=== PATIENT | female | born 1950 | race Caucasian/White ===

== ENCOUNTER 2024-01-17 15:32 | Inpatient (IN) | payer MEDICARE, BC ==
[~2024-01-17] VITALS: Ht 177.8 cm; Wt 77.1 kg
[2024-01-17 16:00] VITALS: BP 156/98; TEMP 98.2; O2SAT 99
[2024-01-17] MEDS: BLOOD SUGAR DIAGNOSTIC 1 EACH STRIP IN ONE (16:30)
[2024-01-17] MEDS ORDERED: MAGNESIUM HYDROXIDE 30 ML UDC PO PRN (16:30)
[2024-01-17] MEDS ORDERED: LORAZEPAM 0.5 MG TABLET PO PRN (16:30)
[2024-01-17] MEDS ORDERED: TEMAZEPAM 7.5 MG CAPSULE PO PRN (16:30)
[2024-01-17] MEDS ORDERED: MAG HYDROX/AL HYDROX/SIMETH 30 ML UDC PO PRN (16:30)
[2024-01-17] MEDS ORDERED: METH500T6 PO (19:50)
[2024-01-17] MEDS ORDERED: ASPI-1420 PO (19:50)
[2024-01-17] MEDS ORDERED: CYAN-51 PO (19:50)
[2024-01-17] MEDS ORDERED: LORA2TAB95 PO (19:50)
[2024-01-17] MEDS ORDERED: MYRBETRIQ PO (19:50)
[2024-01-17] MEDS ORDERED: BUPR-54 PO (19:50)
[2024-01-17] MEDS ORDERED: LEVO75TA PO (19:50)
[2024-01-17] MEDS ORDERED: CHOL200059 PO (19:50)
[2024-01-17] MEDS ORDERED: GABA300C PO (19:50)
[2024-01-17] MEDS ORDERED: MULT-754 PO (19:50)
[2024-01-17] MEDS ORDERED: QUET300T2 PO (19:50)
[2024-01-17] MEDS ORDERED: ROSU5TAB PO (19:50)
[2024-01-17] MEDS ORDERED: METO25TA6 PO (19:50)
[2024-01-17] MEDS ORDERED: DEUT9TAB PO (19:50)
[2024-01-17] MEDS ORDERED: MELA10CA PO (19:50)
[2024-01-17 21:19] VITALS: BP 152/100; TEMP 98.1; O2SAT 98
[2024-01-17] MEDS: ACETAMINOPHEN 325 MG TABLET PO PRN (23:23)
[2024-01-18 08:00] VITALS: TEMP 98.6; O2SAT 98
[2024-01-18] MEDS: ASPIRIN EC 81 MG TABLET.DR PO SCH (08:11)
[2024-01-18] MEDS: CHOLECALCIFEROL 1,000 UNIT TABLET (VIT D3) PO SCH (08:11)
[2024-01-18] MEDS: LEVOTHYROXINE SODIUM 75 MCG TABLET PO SCH (08:11)
[2024-01-18] MEDS: CYANOCOBALAMIN 500 MCG TABLET PO SCH (08:11)
[2024-01-18] MEDS: METOPROLOL TARTRATE 25 MG TABLET PO SCH (08:11)
[2024-01-18] MEDS: MULTIVITAMINS,THERAGRAN 1 UDTAB TABLET PO SCH (08:11)
[2024-01-18] MEDS ORDERED: BUPROPION XL 150 MG TAB.ER.24 PO SCH (09:00)
[2024-01-18] MEDS ORDERED: Medication Not On Formulary EA ([Myrbetriq] 50 MG) PO SCH (09:00)
[2024-01-18] MEDS: CLONIDINE HCL 0.1MG/24H PTWK 1 EA PATCH TD SCH (12:05)
[2024-01-18] MEDS: risperiDONE 1 MG TABLET PO SCH (12:35)
[2024-01-18] MEDS: ENSURE ENLIVE 237 ML LIQUID (VANILLA) PO SCH (12:35)
[2024-01-18] MEDS: LORAZEPAM 0.5 MG TABLET PO SCH (12:36)
[2024-01-18] MEDS: OXCARBAZEPINE 150 MG TABLET PO SCH (12:37)
[2024-01-18 16:00] VITALS: BP 134/81; TEMP 98.6; O2SAT 97
[2024-01-18 20:24] LABS: ALBUMIN 3.5 g/dL (3.4-5.0); BILIRUBIN,TOTAL 0.6 mg/dL (0.2-1.0); CALCIUM, SERUM 9.4 mg/dL (8.5-10.1); POTASSIUM 3.5 mmol/L (3.5-5.1)
[2024-01-18 20:26] LABS: CHOLESTEROL 106 mg/dL (<200); HDL CHOLESTEROL 51 mg/dL (40-60); LDL 33 mg/dL (0-99); TRIGLYCERIDES 75 mg/dL (30-150)
[2024-01-18 20:47] VITALS: BP 135/98; TEMP 98.2; O2SAT 96
[2024-01-18] MEDS: ATORVASTATIN 10 MG TABLET PO SCH (21:41)
[2024-01-18] MEDS: GABAPENTIN 300 MG CAPSULE PO SCH (21:41)
[2024-01-18 21:43] LABS: THYROID STIMULATING HORMONE 5.623 uIU/mL (0.358-3.74)
[2024-01-18 22:58] VITALS: BP 130/88; TEMP 98; O2SAT 97
[2024-01-19 08:00] VITALS: BP 138/90; TEMP 97.9; O2SAT 97
[2024-01-19 16:00] VITALS: BP 109/73; TEMP 98.6; O2SAT 97
[2024-01-19 20:17] VITALS: BP 108/74; TEMP 98.2; O2SAT 97
[2024-01-20] MEDS ORDERED: DEUT12TA PO (07:26)
[2024-01-20 08:00] VITALS: BP 111/74; TEMP 98.1; O2SAT 97
[2024-01-20 11:10] LABS: BASOPHILS % (AUTO) 0.1 % (0.0-2.0); EOSINOPHILS # (AUTO) 0.1 K/uL (0.0-0.7); EOSINOPHILS % (AUTO) 0.5 % (0.0-6.0); HEMATOCRIT 49 % (33-45); HEMOGLOBIN 16.5 g/dL (11.5-14.8); LYMPHOCYTES # (AUTO) 2.4 K/uL (0.8-4.8); LYMPHOCYTES % (AUTO) 22.6 % (20.0-44.0); MEAN CORPUSCULAR HEMOGLOBIN 34 PG (26.0-33.0); MEAN CORPUSCULAR HGB CONC 34 g/dl (31.0-36.0); MEAN CORPUSCULAR VOLUME 99 fL (82-100); MONOCYTES # (AUTO) 0.7 K/uL (0.1-1.30); MONOCYTES % (AUTO) 6.7 % (2.0-12.0); NEUTROPHILS # (AUTO) 7.4 K/uL (1.8-8.9); NEUTROPHILS % (AUTO) 70.1 % (43.0-81.0); PLATELET COUNT (AUTO) 129 K/uL (150-450); RED BLOOD CELL COUNT(AUTO) 4.92 MIL/uL (4.0-5.2); RED CELL DISTRIBUTION WIDTH 14.8 % (11.5-15.0); WHITE BLOOD COUNT (AUTO) 10.5 K/uL (4.3-11.0)
[2024-01-20 11:23] LABS: CALCIUM, SERUM 9.1 mg/dL (8.5-10.1); CREATININE 1.1 mg/dL (0.6-1.3); POTASSIUM 3.5 mmol/L (3.5-5.1)
[2024-01-20 16:00] VITALS: BP 108/63; TEMP 98.6; O2SAT 98
[2024-01-20 20:48] VITALS: BP 114/79; TEMP 98.4; O2SAT 97
[2024-01-21 08:00] VITALS: BP 125/87; TEMP 98; O2SAT 99
[2024-01-21] MEDS: MYRBETRIQ 50 MG PO SCH (09:00)
[2024-01-21] MEDS: BENZTROPINE MESYLATE (1 MG) 1 MG TABLET PO PRN (11:34)
[2024-01-21] MEDS: LORAZEPAM 0.5 MG TABLET PO SCH (12:26)
[2024-01-21 16:00] VITALS: BP 109/74; TEMP 98.6; O2SAT 97
[2024-01-21 16:29] LABS: APPEARANCE,URINE SLIGHTLY CLOUDY (CLEAR); BILIRUBIN,URINE NEGATIVE (NEGATIVE); BLOOD, URINE NEGATIVE Ery/uL (NEGATIVE); COLOR,URINE YELLOW (YELLOW); KETONES,URINE NEGATIVE (NEGATIVE); LEUKOCYTE ESTERASE ,URINE NEGATIVE (NEGATIVE); NITRITE, URINE NEGATIVE (NEGATIVE); PROTEIN,URINE NEGATIVE (NEGATIVE); UGLUCOSE NEGATIVE (NEGATIVE); UROBILINOGEN,URINE 0.2 EU/dL (0.2)
[2024-01-21] MEDS: risperiDONE 1 MG TABLET PO SCH (16:34)
[2024-01-21] MEDS: BENZTROPINE MESYLATE (1 MG) 1 MG TABLET PO SCH (16:34)
[2024-01-21 16:41] LABS: ADD URINE CULTURE NO; BACTERIA,URINE 1+ /HPF (None Seen); RBC,URINE 0-2 /HPF (0-2); WBC,URINE 0-2 /HPF (0-3)
[2024-01-21 16:42] LABS: SQUAMOUS EPITHELIAL CELL,UR Few /HPF (None Seen); URINE AMORPHOUS URATE Few /HPF (None Seen)
[2024-01-21] MEDS ORDERED: diphenhydrAMINE HCL 50 MG/ML VIAL IV PRN (19:00)
[2024-01-21] MEDS ORDERED: diphenhydrAMINE HCL 50 MG/ML VIAL IM PRN (19:30)
[2024-01-21] MEDS: BENZTROPINE MESYLATE (2MG/2ML) 2 MG/2 ML AMPUL IM ONE (20:44)
[2024-01-21 22:27] VITALS: BP 106/59; TEMP 97.6; O2SAT 97
[2024-01-21] MEDS: METHOCARBAMOL (750MG) 750 MG TABLET ONE (23:22)
[2024-01-21] MEDS: METHOCARBAMOL (750MG) 750 MG TABLET PO ONE (23:24)
[2024-01-22 07:15] LABS: BASOPHILS # (AUTO) 0.1 K/uL (0.0-0.2); BASOPHILS % (AUTO) 0.8 % (0.0-2.0); EOSINOPHILS # (AUTO) 0.1 K/uL (0.0-0.7); EOSINOPHILS % (AUTO) 1.7 % (0.0-6.0); HEMATOCRIT 48 % (33-45); HEMOGLOBIN 16.3 g/dL (11.5-14.8); LYMPHOCYTES # (AUTO) 2.8 K/uL (0.8-4.8); MEAN CORPUSCULAR HEMOGLOBIN 34 PG (26.0-33.0); MEAN CORPUSCULAR HGB CONC 34 g/dl (31.0-36.0); MEAN CORPUSCULAR VOLUME 100 fL (82-100); MONOCYTES # (AUTO) 0.6 K/uL (0.1-1.30); MONOCYTES % (AUTO) 7.7 % (2.0-12.0); NEUTROPHILS # (AUTO) 4.5 K/uL (1.8-8.9); NEUTROPHILS % (AUTO) 55.8 % (43.0-81.0); PLATELET COUNT (AUTO) 108 K/uL (150-450); RED CELL DISTRIBUTION WIDTH 14.8 % (11.5-15.0); WHITE BLOOD COUNT (AUTO) 8.1 K/uL (4.3-11.0)
[2024-01-22 08:00] VITALS: BP 142/94; TEMP 97.7; O2SAT 99
[2024-01-22 09:26] LABS: CALCIUM, SERUM 8.8 mg/dL (8.5-10.1); PHOSPHORUS 3.4 mg/dL (2.5-4.9); POTASSIUM 3.7 mmol/L (3.5-5.1)
[2024-01-22 16:00] VITALS: BP 127/79; TEMP 98.6; O2SAT 98
[2024-01-22 20:00] VITALS: BP 134/91; TEMP 97.6; O2SAT 96
[2024-01-23 08:00] VITALS: BP 129/71; TEMP 98; O2SAT 96
[2024-01-23] MEDS ORDERED: MYRBETRIQ 50 MG PO SCH (10:06)
[2024-01-23] MEDS: MYRBETRIQ 50 MG PO SCH (10:13)
[2024-01-23 16:00] VITALS: BP 110/72; TEMP 98.6; O2SAT 98
[2024-01-23 20:00] VITALS: BP_SYST 110; BP_SYST 134; BP_DIAS 64; BP_DIAS 85; TEMP 98.2; TEMP 98.4; O2SAT 96; O2SAT 97
[2024-01-24] MEDS: diphenhydrAMINE HCL 25 MG CAPSULE PO SCH (11:11)
[2024-01-24 20:00] VITALS: BP 126/75; TEMP 98.4; O2SAT 100
[2024-01-25 08:00] VITALS: BP 130/83; TEMP 98.1; O2SAT 97
[2024-01-25 16:00] VITALS: BP 118/79; TEMP 98.4; O2SAT 97
[2024-01-25 20:49] VITALS: BP 124/71; TEMP 98.4; O2SAT 96
[2024-01-26 08:00] VITALS: BP 128/78; TEMP 98.1; O2SAT 96
[2024-01-26 08:36] VITALS: BP 128/78
== END 2024-01-26 13:00 | DRG 885 ==
LOC: GPS 15:32
PROVIDERS: ADMIT Psychiatry & Neurology Psychosomatic Medicine; ATTEND Student in an Organized Health Care Education/Training Program
DX: F25.9 Schizoaffective disorder, unspecified (principal); N17.0 Acute kidney failure with tubular necrosis; F02.83 Dementia in other diseases classified elsewhere, unspecified severity, with mood disturbance; F02.84 Dementia in other diseases classified elsewhere, unspecified severity, with anxiety; G20.A1 Parkinson's disease without dyskinesia, without mention of fluctuations; E78.5 Hyperlipidemia, unspecified; E86.0 Dehydration; F31.9 Bipolar disorder, unspecified; I10 Essential (primary) hypertension; Z95.818 Presence of other cardiac implants and grafts; Z20.822 Contact with and (suspected) exposure to COVID-19; Z73.6 Limitation of activities due to disability; F41.9 Anxiety disorder, unspecified; Z86.73 Personal history of transient ischemic attack (TIA), and cerebral infarction without residual deficits; E11.40 Type 2 diabetes mellitus with diabetic neuropathy, unspecified; D50.9 Iron deficiency anemia, unspecified; E03.9 Hypothyroidism, unspecified; G47.33 Obstructive sleep apnea (adult) (pediatric); I48.91 Unspecified atrial fibrillation; D69.6 Thrombocytopenia, unspecified; Z68.24 Body mass index [BMI] 24.0-24.9, adult; F39 Unspecified mood [affective] disorder; Z79.899 Other long term (current) drug therapy; G24.01 Drug induced subacute dyskinesia
CPT/HCPCS: 36415; 80048-TC; 80053-TC; 80061-TC; 81001; 82565-TC; 83735-TC; 84100-TC; 84443-TC; 85025-TC; 87086-TC; 97110-TC; 97116-TC; 97530-TC; J0515; Q0163